=== PATIENT | male | born 1995 | race Caucasian/White ===

== ENCOUNTER 2021-05-13 15:11 | Emergency (ER) | payer OTHER ==
[~2021-05-13] VITALS: Ht 182.9 cm; Wt 72.7 kg
[2021-05-13 16:35] VITALS: BP 111/67
[2021-05-13] MEDS ORDERED: NORCO 325 MG-51 TA1 PO (17:07)
== END 2021-05-13 16:35 | disposition home or self-care (01) ==
LOC: ED 15:11
DX: S62.300A Unspecified fracture of second metacarpal bone, right hand, initial encounter for closed fracture (principal); W31.9XXA Contact with unspecified machinery, initial encounter; Y92.59 Other trade areas as the place of occurrence of the external cause; Y99.0 Civilian activity done for income or pay